=== PATIENT | male | born 1985 | race Caucasian/White ===

== ENCOUNTER 2018-09-02 09:19 | Emergency (ER) | payer OTHER ==
--- NOTE | 2018-09-02 09:39 | EDPHY ---
H & P Stated Complaint: sent by therapist for meds for donaldo/denies si Time Seen by Provider: 09/02/18 09:32 - Personal History Current Tetanus Diphtheria and Acellular Pertussis (TDAP): Yes - Medical/Surgical History Hx Asthma: No Hx Chronic Respiratory Disease: No Hx Diabetes: No Hx Cardiac Disease: No Hx Renal Disease: No Hx Cirrhosis: No Hx Alcoholism: No Hx HIV/AIDS: No Hx Splenectomy or Spleen Trauma: No Other PMH: r leg fx/esphogeal hernia - Social History Smoking Status: Former smoker Constitutional: Initial Vital Signs Temperature (C) 36.6 C 09/02/18 09:27 Heart Rate 82 09/02/18 09:27 Respiratory Rate 17 09/02/18 09:27 Blood Pressure 163/107 H 09/02/18 09:27 O2 Sat (%) 96 09/02/18 09:27 O2 Delivery Mode Room Air Allergies/Adverse Reactions: Penicillins Allergy (Verified 09/02/18 09:27) Home Medications: Medication Instructions Recorded LORazepam [Ativan 1 mg (RX)] 1 mg PO TID PRN #10 tab 09/02/18 Medical Decision Making ED Course/Re-evaluation: CHIEF COMPLAINT: "I've been having some distressing mental health stuff." HISTORY OF PRESENT ILLNESS: The patient is a 32 y/o male with a history of possible depression who arrives today at the recommendation of his psychologist due to progressive feeling of being out of control over the last few weeks. Three weeks ago he went through what he describes as a manic episode, which he has never experienced before. Over the last week he says, "things started to get really weird with getting confused in public places and lots of anger issues. Kayley fantasize about violent things and driving kayley aggressively. Kayley not feeling in control." He has not been on any psychiatric medications for 7-8 years. He has tried antidepressants in the past, but developed agitation as a as side effect and discontinued them. No co-ingestions or recent trauma. No suicidal ideation. No recent illness. REVIEW OF SYSTEMS: A 10 point review of systems was performed and is negative with the exception of the elements mentioned in the history of present illness. PHYSICAL EXAM: HR, BP, O2 Sat, RR. Temp noted General Appearance: Alert, well hydrated, appropriate, and non-toxic appearing. Head: Atraumatic without scalp tenderness or obvious injury Eyes: Pupils equal, round, reactive to light and accommodation, EOMI, no trauma , no injection. Nose: Atraumatic, no rhinorrhea, clear. Throat: Mucus membranes moist. Neck: Supple, non-tender, no lymphadenopathy. Respiratory: No retractions, no distress, no wheezes, and no accessory muscle use. Lungs are clear to auscultation bilaterally. Cardiovascular: Regular rate and rhythm, no murmurs, rubs, or gallops. Good capillary refill all extremities. Gastrointestinal: Abdomen is soft, non-tender, non-distended, no masses, no rebound, no guarding, no peritoneal signs. Musculoskeletal: Normal active ROM of all extremities, atraumatic. Neurological: Alert, appropriate, and interactive. The patient has non-focal cranial nerves, motor, sensory, and cerebellar exam. Skin: No rashes, good turgor, no nodules on palpation. PAST MEDICAL HISTORY: Possible depression PAST SURGICAL HISTORY: Noncontributory SOCIAL HISTORY: Lives in [place]. Single. Not employed. DIFFERENTIAL DIAGNOSIS: The differential diagnosis for the patient's depression included but was not limited to bipolar disorder, functional and major depression, situational depression, medication side effect, drugs, and alcohol abuse. MEDICAL DECISION MAKING: This is a 32 y/o male with a possible history of depression who presents voluntarily with a 3-week history of feeling progressively less in control, angry, and manic. Exam is unremarkable. Plan for standard psychiatric labs and mental health evaluation. Labs unremarkable. Patient is medically clear. Mental health evaluated patient and believes outpatient follow up is appropriate. He has good insight and contracts for safety. Outpatient resources provided by rn lactation consultant. Return precautions discussed. Small script of Lorazepam for sleep provided at patient's request. - Data Points Laboratory Results: Laboratory Results 09/02/18 09:45 09/02/18 09:45 09/02/18 09/02/18 09/02/18 09:45 09:45 09:45 WBC 9.60 10^3/uL H 10^3/uL (3.80-9.50) RBC 5.61 10^6/uL 10^6/uL (4.40-6.38) Hgb 17.3 g/dL g/dL (13.7-17.5) Hct 49.0 % % (40.0-51.0) MCV 87.3 fL fL (81.5-99.8) MCH 30.8 pg pg (27.9-34.1) MCHC 35.3 g/dL g/dL (32.4-36.7) RDW 12.1 % % (11.5-15.2) Plt Count 245 10^3/uL 10^3/uL (150-400) MPV 9.8 fL fL (8.7-11.7) Neut % (Auto) 59.7 % % (39.3-74.2) Lymph % (Auto) 28.0 % % (15.0-45.0) [place] % (Auto) 7.9 % % (4.5-13.0) Eos % (Auto) 3.1 % % (0.6-7.6) Baso % (Auto) 0.8 % % (0.3-1.7) Nucleat RBC Rel Count 0.0 % % (0.0-0.2) Absolute Neuts (auto) 5.72 10^3/uL 10^3/uL (1.70-6.50) Absolute Lymphs (auto) 2.69 10^3/uL 10^3/uL (1.00-3.00) Absolute Monos (auto) 0.76 10^3/uL 10^3/uL (0.30-0.80) Absolute Eos (auto) 0.30 10^3/uL 10^3/uL (0.03-0.40) Absolute Basos (auto) 0.08 10^3/uL 10^3/uL (0.02-0.10) Absolute Nucleated RBC 0.00 10^3/uL 10^3/uL (0-0.01) Immature Gran % 0.5 % % (0.0-1.1) Immature Gran # 0.05 10^3/uL 10^3/uL (0.00-0.10) Sodium 141 mEq/L mEq/L (135-145) Potassium 3.9 mEq/L mEq/L (3.5-5.2) Chloride 105 mEq/L mEq/L (97-110) Carbon Dioxide 24 mEq/l mEq/l (22-31) Anion Gap 12 mEq/L mEq/L (6-14) BUN 16 mg/dL mg/dL (7-23) Creatinine 0.9 mg/dL mg/dL (0.7-1.3) Estimated GFR > 60 Glucose 106 mg/dL H mg/dL (70-100) Calcium 9.6 mg/dL mg/dL (8.5-10.4) Urine Opiates Screen NEGATIVE (NEGATIVE) Urine Barbiturates NEGATIVE (NEGATIVE) Ur Phencyclidine Scrn NEGATIVE (NEGATIVE) Ur Amphetamine Screen NEGATIVE (NEGATIVE) U Benzodiazepines Scrn NEGATIVE (NEGATIVE) Urine Cocaine Screen NEGATIVE (NEGATIVE) U Marijuana (THC) Screen NEGATIVE (NEGATIVE) Ethyl Alcohol < 10 mg/dL mg/dL (0-10) Departure - Departure Disposition: Home, Routine, Self-Care Clinical Impression: Depression Qualifiers: Depression Type: unspecified Qualified Code(s): F32.9 - Major depressive disorder, single episode, unspecified Condition: Good Instructions: Depression (ED) Additional Instructions: Follow up with the resources discussed. Return for any worsening of condition. Referrals: [facility],. [Clinic] - As per Instructions Prescriptions: LORazepam [Ativan 1 mg (RX)] 1 mg PO TID PRN #10 tab PRN Reason: Anxiety Report Scribed for: Scout Kenney Report Scribed by: Rosa Weeks Date of Report: 09/02/18 Time of Report: 09:57
[2018-09-02 10:02] LABS: PLATELET COUNT 245 10^3/uL (150-400)
[2018-09-02 13:53] VITALS: BP 132/78
--- NOTE | 2018-09-02 14:27 | ASMTTCLDSP ---
TLC Discharge Disposition Disposition: Answers: Discharge If Answers: Yes DISCHARGED: Patient/family given suicide hotline info & SAMHSA brochure? Disposition Notes: Notes: Pt was given resources to [facility] and given list of psychiatrist in [place], as pt requested. Pt will follow-up with his therapist and his psychiatrist appt in November with Dr. Jack Jasmine. Discharge Concerns/Recommendations: Notes: In consultation with [facility] ED physician, Scout Kenney MD, concurred that pt does not appear to meet 27-65 criteria requiring psychiatric hospitalization as pt does not appear to be an imminent risk of harm to self/others/gravely disabled due to a mental illness condition Date Signed: 09/02/2018 02:26 PM Electronically Signed By:Twila Covarrubias
--- NOTE | 2018-09-02 14:42 | ASMTTLCEVL ---
TLC Evaluation - Basic Information Evaluation Start Date and 09/02/2018 12:30 PM Time Hospital Status Answers: Voluntary Patient statement Notes: About three weeks ago, I felt like I suddenly shifted into a manic episode. The day before I talked to my parents about how depressed I was and felt like I was going to , like I didn't expect to live or something. Then, two days later, I suddenly felt a lot of energy. I never felt a shift like that. Narrative Notes: Pt is a 32 year old male who presented voluntarily to [facility] Ed at the recommendation of his therapist. Pt reports that he has been feeling increasingly depressed mixed with "manic episodes" Pt reports he has been having irritable and aggressive thoughts. He states he has been driving more aggressively, in excessive speeds, swerving around people and "getting mad at people when they aren't doing anything wrong." Pt reports in his 20's he has had similar symptoms but he states he has not experienced them all at once like this. Pt reports he has struggled with marijuana dependence since 19 years old and has periods of sobriety but currently uses occasionally. Pt reports some recent stressors are financial stress, child support issues and conflict with his child's mother. Pt denied any Si,intent or plan. Pt reports feeling some confusion and stated he recently went to [employer] to buy some food and when he got there he did not remember why he was there and continued to walk around the store. Another time pt was driving home from work, took a wrong turn and got lost even though he drives this route every day to work. Pt reports feeling "really paranoid" and stated he once heard his roommate in the garage even though his roommate was not in the garage. Diagnosis History Notes: Pt reports a hx of substance abuse, depression, anxiety and ADHD. Prior suicide attempts Notes: Pt denied any prior suicide attempts or self harming hx. Prior hospitalizations Notes: Pt has no hx of psychiatric hospitalization but has had 3 inpt substance abuse tx stays and 3 outpatient tx. Treatment Responses Notes: Pt has had periods of sobriety but is currently using marijuanna. History of violence Notes: Pt reports he has been having "weird thoughts lately." Pt denies wanting to harm anyone in particular but states sometimes he will think of weird scenarios of imagining someone harming him and how he would defend himself against that person. He also reports driving aggressively at excessive speeds, swerving around other cars.Pt reports he is afraid of hurting someone in this circumstance. Therapist: Jayro Camarena. Pt has been seeing Jack inconsistently but now they have scheduled to start attending sessions weekly. Psychiatrist: None- Pt has made an appt with Dr. Jack Jasmine but his appt is not until November. Medications (name, dosage, route, freq uency) Notes: None- in the past pt has been on different anti-depressants. Pt reports they all had negative side effects ( anxiety, irritability, aggression). Pt has been off these meds for 5 years. Allergies/Reaction Notes: Penicillin Sleep Notes: Pt reports not getting enough sleep for the past 3 weeks. He states he gets about 4-6 hours approximately, with waking up in the middle of the night. Appetite Notes: Pt reports overeating and states he often uses overeating as coping skill. Medical/Surgical history Notes: Pt reports having some stomach issues. Substance use history (frequency, intensity, his tory, duration) Notes: Pt has a hx of marijuana addiction. He has been to rehab 3 times. He first started using at 19 years of age and has had periods of sobriety since then. Pt stated he last used this past weekend. Pt uses alcohol occasionally. Utox was negative and bal was.0 Family composition Notes: Pt is adopted. [place] parents live In [place] during the summer and [place] during the winter. Pt does have some contact with his biological mother. Need for family Answers: No participation in patient's care Family psychiatric/substance abuse history Notes: Pt reports his biological mother has a hx of panic attacks. His maternal grandmother has a hx of bipolar disorder. Developmental history Notes: Pt grew up in [place]. he reports his parents were until he was in his 20's. He remembers his father traveling a lot for business and stated, " I don't remember much of my childhood." Pt denied any concussions. He denies any childhood abuse. Abuse concerns Answers: None Marital status/children Notes: Unmarried. Pt has 1 child, a 16 month old son who lives in [place] with his mother. Pt was not to his son's mother. Pt gets to visit him occasionally. Living situation Notes: Pt lives In [place] with a roommate. Sexual history/orientation Notes: Pt identifies as heterosexual. 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 Notes: None Legal Notes: Pt denies any legal problems. Voodoo/Spiritual Notes: None that would interfere with tx. Leisure Notes: Mountain biking, hockey, golf, hiking. Collateral Notes: None Patient's strengths Answers: Insightful (Please select at least TWO strengths): Intelligent Motivated for Treatment Willingness TLC Evaluation - Mental Status Exam Appearance: Answers: Appropriate Clean Neat Eye Contact: Answers: Good/Direct Mood: Answers: Sad Affect: Answers: Anxious Calm Behavior: Answers: Cooperative Speech: Answers: Relevant Logical Clear Coherent Thought Process: Answers: Organized Oriented Alert Intact Insight: Answers: Good Judgement: Answers: Good Depression Answers: Sad Mood Signs/Symptoms: Anxiety Signs/Symptoms Answers: Generalized Anxiety Hallucinations: Answers: None Current Stage of Change Answers: Precontemplation Pt reported to have Answers: No suicidal/self-injuring ideation/behavior? Pt reported to be making Answers: No suicidal/self-injuring threats? Pt reported to have Answers: No aggression/assault ideation/behavior? Pt reported to be making Answers: No aggression/assault threats? Pt exhibits inability to Answers: No care for self/grave disability? Ideation/behavior is Answers: No chronic? Patient has a specific Answers: No plan? Pt has access to means to Answers: No execute the plan? Ideation involves Answers: No serious/lethal intent? Ideation has Answers: No delusional/hallucinatory content? History of Answers: No suicidal/self-injuring ideation, behavior, or threats? History of Answers: No aggressive/assaultive ideation, behavior, or threats? History of serious Answers: No physical harm to self/others while in treatment setting? TLC Evaluation - Suicide/Homicide Risk Suicide Risk Factors: Answers: < 20 or > 40 Years of Age Alcohol/Heavy Drug Use Homicide/violence risk Answers: None factors: Current Suicidal Answers: No Ideation? Current Suicidal Ideation Answers: No in the Past 48 Hours? Current Suicidal Ideation Answers: No in the Past Month? Current Suicidal Answers: No Ideation, Worst Ever? Suicide Internal Answers: Absence of Psychosis Protective Factors: Suicide External Answers: Positive Therapeutic Protective Factors: Relationships Responsibility to Children Social Support Ranking of patient's Answers: Low suicidal risk: Ranking of patient's Answers: Low homicidal risk: TLC Evaluation - Wrap-up BDI Total Score: 28 BDI Question #2 Score: 2 BDI Question #9 Score: 1 BSS Total Score: 7 AXIS I Diagnosis (include DSM-V and ICD-10 codes), must also be entered in [employer], which is the source of truth. Notes: Unspecified Depressive Disorder 311 (F32.9) Generalized Anxiety Disorder 300.02 (F41.1) Cannabis Use Disorder, severe 304.30 (F12.20) In consultation with [facility] ED physician, Scout Kenney MD, concurred that pt does not appear to meet 27-65 criteria requiring psychiatric hospitalization as pt does not appear to be an imminent risk of harm to self/others/gravely disabled due to a mental illness condition. Evaluation End Date and 09/02/2018 02:40 PM Time (HH:SHYAM): Date Signed: 09/02/2018 02:42 PM Electronically Signed By:Twila Covarrubias
== END 2018-09-02 14:02 | disposition home or self-care (01) ==
DX: F32.9 Major depressive disorder, single episode, unspecified (principal)
CPT/HCPCS: 80305; G0480